=== PATIENT | female | born 1975 | race Caucasian/White ===

== ENCOUNTER 2022-10-31 06:00 | Emergency (ER) | payer MEDICAID, OTHER ==
[~2022-10-31] VITALS: Ht 160 cm; Wt 93.9 kg
[2022-10-31 06:04] VITALS: BP 155/81
--- NOTE | 2022-10-31 06:14 | NUR ---
PT TAKEN TO BED 11
--- NOTE | 2022-10-31 06:15 | NUR ---
Dr. Rolle examining patient.
[2022-10-31 06:33] VITALS: BP 127/84
[2022-10-31 08:12] LABS: APPEARANCE,URINE CLEAR (CLEAR); BILIRUBIN,URINE NEGATIVE (NEGATIVE); BLOOD, URINE 3+ (NEGATIVE); COLOR,URINE YELLOW (YELLOW); LEUKOCYTE ESTERASE ,URINE 2+ (NEGATIVE); NITRITE, URINE POSITIVE (NEGATIVE); UGLUCOSE NEGATIVE (NEGATIVE)
[2022-10-31] MEDS ORDERED: NITR100C7 PO (08:29)
[2022-10-31] MEDS ORDERED: PHEN-1877 PO (08:29)
[2022-10-31 08:32] LABS: RBC,URINE >100 /HPF (0-5)
--- NOTE | 2022-10-31 08:45 | NUR ---
Patient discharged with v/s stable. Written and verbal after care instructions given and explained. Patient alert, oriented and verbalized understanding of instructions. Ambulatory with steady gait. All questions addressed prior to discharge. ID band removed. Patient advised to follow up with PMD. Rx of MARCROBID, PYRIDIUM given. Patient educated on indication of medication including possible reaction and side effects. Opportunity to ask questions provided and answered.
== END 2022-10-31 08:42 | disposition home or self-care (01) ==
LOC: MED 06:00
DX: N39.0 Urinary tract infection, site not specified (principal); Z79.2 Long term (current) use of antibiotics; Z79.899 Other long term (current) drug therapy
CPT/HCPCS: 81001; 81025; 87086; 99283

== ENCOUNTER 2023-02-22 10:51 | Emergency (ER) | payer MEDICAID ==
[~2023-02-22] VITALS: Ht 160 cm; Wt 97.5 kg
[~2023-02-22 10:51] MED LIST: AMOX-1230 PO; BACI-418 TP; IBUP-2213 PO; NITR100C7 PO; PHEN-1877 PO
[2023-02-22 11:08] VITALS: BP 112/69; PULSE 84; RESP 20; TEMP 97.6; O2SAT 100
[2023-02-22] MEDS ORDERED: ACETAMINOPHEN 325 MG TAB PO ONE (11:40)
[2023-02-22] MEDS ORDERED: methocarbamoL 500 MG TAB PO STA (11:40)
[2023-02-22] MEDS ORDERED: LIDOCAINE 5% 1 EA PATCH TP STA (11:40)
[2023-02-22] MEDS ORDERED: KETOROLAC 15 MG/ML VIAL IM ONE (11:40)
[2023-02-22] MEDS ORDERED: predniSONE 20 MG TAB PO ONE (11:50)
[2023-02-22 11:59] LABS: APPEARANCE,URINE CLEAR (CLEAR); BILIRUBIN,URINE NEGATIVE (NEGATIVE); BLOOD, URINE NEGATIVE (NEGATIVE); COLOR,URINE YELLOW (YELLOW); LEUKOCYTE ESTERASE ,URINE NEGATIVE (NEGATIVE); NITRITE, URINE NEGATIVE (NEGATIVE); PROTEIN,URINE NEGATIVE (NEGATIVE); UGLUCOSE NEGATIVE (NEGATIVE); UROBILINOGEN,URINE 0.2 EU/dL (0.2 - 1)
[2023-02-22] MEDS ORDERED: IBUP-2213 PO (13:17)
[2023-02-22] MEDS ORDERED: METH-1681 PO (13:17)
[2023-02-22] MEDS ORDERED: PRED20TA5 PO (13:17)
[2023-02-22] MEDS ORDERED: LID5T TP (13:17)
[2023-02-22 13:25] VITALS: BP 106/77; PULSE 77; RESP 20; O2SAT 97
== END 2023-02-22 13:25 | disposition home or self-care (01) ==
LOC: MED 10:51
DX: M54.17 Radiculopathy, lumbosacral region (principal); G89.29 Other chronic pain; Z79.899 Other long term (current) drug therapy
CPT/HCPCS: 81003; 81025; 96372; 99284; J1885; J7512

== ENCOUNTER 2023-10-29 07:50 | Emergency (ER) | payer MEDICAID, OTHER ==
[~2023-10-29] VITALS: Ht 165.1 cm; Wt 97.5 kg
[~2023-10-29 07:50] MED LIST changes: +LID5T TP; +METH-1681 PO; +PRED20TA5 PO
[2023-10-29 08:06] VITALS: BP 160/85; PULSE 94; RESP 18; TEMP 96.9; O2SAT 98
[2023-10-29] MEDS: ONDANSETRON 4 MG ODT PO ONE (08:51)
[2023-10-29 08:55] LABS: BASOPHILS # (AUTO) 0.1 K/uL (0.00-0.22); BASOPHILS % (AUTO) 0.5 % (0.0-2.0); EOSINOPHILS # (AUTO) 0.2 K/uL (0-0.4); EOSINOPHILS % (AUTO) 1.8 % (0.0-4.0); HEMATOCRIT 39.5 % (36-48); HEMOGLOBIN 13.5 g/dL (12.0-16.0); LYMPHOCYTES # (AUTO) 3.1 K/uL (2.5-16.5); LYMPHOCYTES % (AUTO) 26.4 % (20.5-51.1); MEAN CORPUSCULAR HEMOGLOBIN 29 pg (27-31); MEAN CORPUSCULAR HGB CONC 34 g/dL (33-37); MEAN CORPUSCULAR VOLUME 84.9 fL (80-94); MONOCYTES # (AUTO) 0.6 K/uL (0.8-1.0); NEUTROPHILS # (AUTO) 7.8 K/uL (1.8-7.7); NEUTROPHILS % (AUTO) 66.3 % (42.2-75.2); PLATELET COUNT (AUTO) 371 K/uL (140-450); RED BLOOD CELL COUNT(AUTO) 4.65 MIL/uL (4.20-5.40); WHITE BLOOD COUNT (AUTO) 11.8 K/uL (4.8-10.8)
[2023-10-29 09:06] LABS: ANION GAP 13.1 (8-16); CALCIUM 8.9 mg/dL (8.5-10.1); CARBON DIOXIDE 25.6 mmol/L (21-32); CREATININE 0.5 mg/dL (0.6-1.3); POTASSIUM 3.7 mmol/L (3.5-5.1)
[2023-10-29 09:11] LABS: ALANINE AMINOTRANSFERASE 39 U/L (12-78); ALBUMIN 3.3 g/dL (3.4-5.0); ALKALINE PHOSPHATASE 130 U/L (50-136); ASPARTATE AMINOTRANSFERASE 11 U/L (15-37); BILIRUBIN,DIRECT 0.1 mg/dL (0.0-0.3); LIPASE 29 U/L (16-77); TOTAL BILIRUBIN 0.4 mg/dL (0.0-1.0); TOTAL PROTEIN, SERUM 7.9 g/dL (6.4-8.2)
[2023-10-29 10:06] LABS: INR 0.92 (0.8-1.2); PARTIAL THROMBOPLASTIN TIME 25.9 secs (22-35.6); PROTHROMBIN TIME 9.7 secs (10.8-13.4)
[2023-10-29 10:25] VITALS: BP 124/80; PULSE 87; RESP 18; TEMP 97.9; O2SAT 96
== END 2023-10-29 10:25 | disposition home or self-care (01) ==
LOC: MED 07:50
DX: R20.2 Paresthesia of skin (principal); M06.9 Rheumatoid arthritis, unspecified; I10 Essential (primary) hypertension; R73.9 Hyperglycemia, unspecified; Z79.1 Long term (current) use of non-steroidal anti-inflammatories (NSAID); Z79.2 Long term (current) use of antibiotics; Z79.899 Other long term (current) drug therapy
CPT/HCPCS: 36415; 71045; 80048; 80076; 81025; 83690; 84484; 85025; 85610; 85730; 93005; 99285; Q0162